=== PATIENT | female | born 1995 | race Caucasian/White ===

== ENCOUNTER → 2022-09-05 11:35 | Outpatient (BNVA) | payer OTHER, SELFPAY | PROVIDERS: Visit Provider Nurse Practitioner Women's Health | DX: Z12.4 Encounter for screening for malignant neoplasm of cervix (principal); Z11.3 Encounter for screening for infections with a predominantly sexual mode of transmission; Z30.9 Encounter for contraceptive management, unspecified | CPT/HCPCS: 81025; 86592; 86803; 87340; 87491; 87591; 87661; 87806; 88175 ==

== ENCOUNTER 2022-10-17 13:53 | Outpatient (CLI) | payer OTHER, SELFPAY ==
--- NOTE | 2022-10-17 14:05 | XR_ITS ---
WS: [id number] XR abdomen min 2V 03364 REASON FOR EXAM: T83.32XA - Displacement of intrauterine contraceptive dev... FINDINGS: No free air or retroperitoneal air. Bowel gas pattern is unremarkable. No mass is identified. No radiopaque intrauterine contraceptive device is identified. XR/XR abdomen min 2V [id number] IMPRESSION: No intrauterine contraceptive device identified. No other abdominal abnormality noted.
== END 2022-10-17 13:54 | disposition home or self-care (01) ==
LOC: RAD 13:56
PROVIDERS: Visit Provider Nurse Practitioner Women's Health
DX: T83.32XA Displacement of intrauterine contraceptive device, initial encounter (principal); X58.XXXA Exposure to other specified factors, initial encounter
CPT/HCPCS: 74019; 81025

== ENCOUNTER → 2022-11-29 10:17 | Outpatient (BNVA) | payer OTHER, SELFPAY | PROVIDERS: PCP Family Medicine; Visit Provider Nurse Practitioner Women's Health | DX: Z30.431 Encounter for routine checking of intrauterine contraceptive device (principal) | CPT/HCPCS: 76830 ==

== ENCOUNTER 2023-02-09 04:51 | Emergency (ER) | payer OTHER, SELFPAY ==
[2023-02-09 04:53] VITALS: BP 168/91; PULSE 97; RESP 22; TEMP 36.8; O2SAT 100; BMI 36.5
--- NOTE | 2023-02-09 05:11 | CTR_ITS ---
PROCEDURE INFORMATION: Exam: CT Abdomen And Pelvis With Contrast Exam date and time: 02/09/2023 5:49 AM Age: 27 years old Clinical indication: Abdominal pain; Localized; Right lower quadrant (rlq); Prior surgery; Surgery date: 6+ months; Surgery type: Iud; Patient HX: C/O rlq pain. History of crohn's TECHNIQUE: Imaging protocol: Computed tomography of the abdomen and pelvis with contrast. Radiation optimization: All CT scans at this facility use at least one of these dose optimization techniques: automated exposure control; mA and/or kV adjustment per patient size (includes targeted exams where dose is matched to clinical indication); or iterative reconstruction. Contrast material: OMNI 350; Contrast volume: 100 ml; Contrast route: INTRAVENOUS (IV); REPORTING DATA: Count of CT and Cardiac NM exams in prior 12 months: This patient has received 0 known CTs and 0 known cardiac nuclear medicine studies in the 12 months prior to the current study. COMPARISON: CR XR abdomen min 2V [id number] 10/17/2022 2:16 PM RADIATION DOSE METRICS: Total DLP (mGy-cm): 1002.73 FINDINGS: Liver: Normal. No mass. Gallbladder and bile ducts: Normal. No calcified stones. No ductal dilation. Pancreas: Normal. No ductal dilation. Spleen: Normal. No splenomegaly. Adrenal glands: Normal. No mass. Kidneys and ureters: Normal. No hydronephrosis. Stomach and bowel: Moderate stool is present within the colon. Nondilated fluid-filled small bowel loops are seen , findings that could suggest mild ileus. Appendix: The appendix is visualized and is normal in configuration. Intraperitoneal space: Unremarkable. No free air. No significant fluid collection. Vasculature: Unremarkable. No abdominal aortic aneurysm. Lymph nodes: A few small mesenteric lymph nodes are seen in the right lower quadrant that are below CT criteria for lymphadenopathy. Mild mesenteric lymphadenitis cannot be entirely excluded. Urinary bladder: Unremarkable as visualized. Reproductive: An IUD is present. Bones/joints: Unremarkable. No acute fracture. Soft tissues: Unremarkable. Other findings: Low-attenuation fluid is seen in the dependent portion of the pelvis likely commensurate with the patient's age and menstrual status. CT/CT abdomen pelvis w con* [id number] IMPRESSION: 1. There are no acute abdominal findings. 2. Nondilated fluid-filled small bowel loops could represent mild ileus. 3. Small mesenteric lymph nodes in the right lower quadrant are below CT criteria for lymphadenopathy. Mild mesenteric lymphadenitis cannot entirely excluded however. 4. Low-attenuation fluid seen in the dependent portion the pelvis likely commensurate with patient's age and menstrual status. 5. Normal appendix 6. No evidence for ureteral obstruction
--- NOTE | 2023-02-09 05:12 | W.ED.ABDPA2 ---
HPI - Abdominal Pain General: Chief Complaint: Abdominal Pain Stated Complaint: abd pain Time Seen by Provider: 02/09/23 05:08 Source: patient History of Present Illness: 27-year-old female with no prior history of belly surgery. She presents with right lower quadrant pain and left lower quadrant pain. Pain started quite suddenly about 45 minutes prior to arrival. No significant nausea or vomiting. She does have a history of Crohn's disease no recent flares including blood in the stool, diarrhea, etc. MD elicited complaint: abdominal pain Pertinent past history: other Onset (ago): minute(s) Pain Consistency: constant Location: RLQ and LLQ Severity: moderate Quality: other Radiation: none Migration to: no migration Exacerbating factors: nothing Associated Symptoms: Denies change in stool character, chills, diarrhea, dysuria, fever(s), hematuria, melena, poor appetite and vomiting Review of Systems Const: Denies: fever(s) or chills Card: Denies: chest pain Resp: Denies: dyspnea GI: Denies: vomiting, diarrhea, change in stool character or melena : Denies: dysuria, hematuria, vaginal bleeding or vaginal discharge [facility] ED PFSH: Medical History Crohn's disease Symptoms not managed with Lialda; has colonoscopy scheduled Hypothyroid No pertinent past medical history neghx: htn,dm,dvt/pe PCP: Dr. Ruano Surgical History H/O vaginal surgery (~2007) Reported as a vaginal repair after her 2008 delivery. Family History Mother Hypertension Father Hypertension Grandmother Thyroid disease Paternal Diabetes Paternal Denies family history of Colon cancer Ovarian cancer Hypercholesteremia Hyperlipidemia Breast cancer Uterine cancer Physical Exam Const: COMMON NORMALS: no acute distress GENERAL APPEARANCE: cooperative; not ill appearing and not frail appearing HENMT: COMMON NORMALS: normocephalic, atraumatic and Normal external nose present HEAD & SCALP: normocephalic and atraumatic FACE & SINUS: normal facial exam and face symmetric NOSE: Normal external nose present Eye: COMMON NORMALS: Equal, round and reactive pupils present and EOMs intact bilaterally PUPIL: Yes Equal, round and reactive pupils present Neck/C-Spine: GENERAL: Yes trachea midline Chest: CHEST: Yes Symmetrical chest wall rise Resp: COMMON NORMALS: normal respiratory effort, No retractions, No use of accessory muscles and clear to auscultation bilaterally AUSCULTATION: clear to auscultation bilaterally Cardio: COMMON NORMALS: regular rate and regular rhythm RATE: regular rate RHYTHM: regular rhythm GI: COMMON NORMALS: Normal to inspection, nondistended, normoactive bowel sounds present PALPATION: Yes Tenderness to palpation present (GI) Details: LLQ and RLQ Extremity: COMMON NORMALS: no pedal edema Neuro: TOYIN COMA SCALE: document GCS findings Liberty coma scale eye opening: Spontaneous Liberty coma scale verbal response: Orientated Liberty coma scale motor response: Obey commands Liberty coma scale total score: 15 SENSORY EXAM: Yes extremities (intact) Psych: COMMON NORMALS: speech normal SPEECH: Yes normal speech Skin: COMMON NORMALS: no rashes or lesions noted GENERAL SKIN EXAM: no rashes or lesions noted Course Vital Signs: Vital signs: Vital Signs Temperature 98.3 F 02/09/23 04:53 Pulse Rate 76 02/09/23 07:27 Respiratory Rate 16 02/09/23 07:27 Blood Pressure 128/69 02/09/23 07:27 Pulse Oximetry 95 02/09/23 07:27 Oxygen Delivery Me thod Room Air 02/09/23 07:27 MDM - Abdominal Pain Medical Decision Making Vital signs are stable. White blood cell count is 10. Hemoglobin 13.5. Liver enzymes are normal. BMP is normal. Lipase is 20. hCG is negative. CT results are pending her CRP is 4. Urinalysis is pending. CT reveals nondilated fluid-filled small bowel loops representing a mild ileus. There is shotty mesenteric lymphadenopathy in the right lower quadrant suggestive of mesenteric adenitis, which is the most likely cause of her right lower quadrant pain. Urinalysis came back with 2+ leukocyte esterase and white, and does not appear significantly contaminated. The patient was discharged prior to urinalysis resulting due to delays in urinalysis antibiotics will be called in for the patient. Lab Data 02/09/23 05:12 02/09/23 05:12 Labs/Radiology: Radiology Impressions Abdomen/Pelvis CT 02/09/23 05:11 IMPRESSION: 1. There are no acute abdominal findings. 2. Nondilated fluid-filled small bowel loops could represent mild ileus. 3. Small mesenteric lymph nodes in the right lower quadrant are below CT criteria for lymphadenopathy. Mild mesenteric lymphadenitis cannot entirely excluded however. 4. Low-attenuation fluid seen in the dependent portion the pelvis likely commensurate with patient's age and menstrual status. 5. Normal appendix 6. No evidence for ureteral obstruction Laboratory Results WBC 10.2 10^3/uL (4.0-10.0) H 02/09/23 05:12 RBC 4.74 10^6/uL (4.1-5.3) 02/09/23 05:12 Hgb 13.5 g/dL (11.5-15.3) 02/09/23 05:12 Hct 42.2 % (37.0-47.0) 02/09/23 05:12 MCV 89.0 fl (81-99) 02/09/23 05:12 MCH 28.5 pg (28.0-34.0) 02/09/23 05:12 MCHC 32.0 g/dL (30.0-36.0) 02/09/23 05:12 RDW 12.3 % (12.1-15.1) 02/09/23 05:12 Plt Count 288 10^3/cmm (130-400) 02/09/23 05:12 MPV 9.8 fL (7.4-10.4) 02/09/23 05:12 Neut % (Auto) 57.2 % 02/09/23 05:12 Lymph % (Auto) 31.8 % 02/09/23 05:12 [place] % (Auto) 7.2 % 02/09/23 05:12 Eos % (Auto) 3.0 % 02/09/23 05:12 Baso % (Auto) 0.5 % 02/09/23 05:12 Neut # (Auto) 5.85 10^3/uL (1.8-7.7) 02/09/23 05:12 Lymph # (Auto) 3.3 10^3/uL (0.8-4.8) 02/09/23 05:12 [place] # (Auto) 0.7 10^3/uL (0.2-0.9) 02/09/23 05:12 Eos # (Auto) 0.3 10^3/uL (0.0-0.8) 02/09/23 05:12 Baso # (Auto) 0.1 10^3/uL (0.0-0.1) 02/09/23 05:12 Nucleated RBC % (auto) 0 % 02/09/23 05:12 Nucleated RBCs # 0.0 /100WBC 02/09/23 05:12 Sodium 137 mmol/L (136-145) 02/09/23 05:12 Potassium 3.9 mmol/L (3.5-5.1) 02/09/23 05:12 Chloride 100 mmol/L (98-107) 02/09/23 05:12 Carbon Dioxide 25 mmol/L (22-29) 02/09/23 05:12 Anion Gap 15.9 (5-19) 02/09/23 05:12 BUN 14 mg/dL (6-20) 02/09/23 05:12 Creatinine 0.7 mg/dL (0.5-0.9) 02/09/23 05:12 GFR Calculation 98.9 mL/min (90-130) 02/09/23 05:12 Glucose 96 mg/dL (65-115) 02/09/23 05:12 Calculated Osmolality 284 mOsm/kg (285-295) L 02/09/23 05:12 Calcium 9.2 mg/dL (8.5-10.5) 02/09/23 05:12 Total Bilirubin 0.3 mg/dL (0.15-1.2) 02/09/23 05:12 AST 21 U/L (0-32) 02/09/23 05:12 ALT 21 U/L (0-33) 02/09/23 05:12 Alkaline Phosphatase 116 U/L (35-105) H 02/09/23 05:12 C-Reactive Protein 3.9 mg/L (0.0-4.9) 02/09/23 05:12 Total Protein 7.4 g/dL (6.6-8.7) 02/09/23 05:12 Albumin 4.6 g/dL (3.5-5.2) 02/09/23 05:12 Globulin 2.8 g/dL (1.3-4.6) 02/09/23 05:12 Lipase 20 U/L (13-60) 02/09/23 05:12 HCG, Qual Negative (Negative) 02/09/23 05:12 Urine Color Straw (Yellow) 02/09/23 06:50 Urine Appearance Clear (CLEAR) 02/09/23 06:50 Urine pH 7 (5-7) 02/09/23 06:50 Ur Specific [place] 1.005 (1.005-1.030) 02/09/23 06:50 Urine Protein Neg (Negative) 02/09/23 06:50 Urine Glucose (UA) Norm (Normal) 02/09/23 06:50 Urine Ketones Negative (Negative) 02/09/23 06:50 Urine Blood Neg (Negative) 02/09/23 06:50 Urine Nitrate Negative (Negative) 02/09/23 06:50 Urine Bilirubin Neg (Negative) 02/09/23 06:50 Urine Urobilinogen Norm mg/dL (Negative) 02/09/23 06:50 Ur Leukocyte Esterase 2+ (Negative) H 02/09/23 06:50 Urine RBC None /hpf (0-2) 02/09/23 06:50 Urine WBC 15-25 /hpf (0-5) H 02/09/23 06:50 Ur Squamous Epith Cells 0-4 /hpf (0-5) H 02/09/23 06:50 Amorphous Sediment Not Reportable 02/09/23 06:50 Urine Bacteria 1+ /hpf (NONE) H 02/09/23 06:50 Discharge Plan Discharge Patient Disposition: Home Clinical Impression: Acute mesenteric lymphadenitis Condition: Stable Prescriptions: New hydrocodone-acetaminophen 5-325 mg tablet 1 tab PO Q8H PRN (Reason: pain) Qty: 10 0RF ondansetron 4 mg film 4 mg PO DAILY PRN (Reason: nausea and vomiting) Qty: 10 0RF No Action Mirena 20 mcg/24 hours (8 yrs) 52 mg intrauterine device 1 device intrauterine ONCE Qty: 1 0RF Mirena 20 mcg/24 hours (8 yrs) 52 mg intrauterine device 1 device intrauterine ONCE sertraline 50 mg tablet 50 mg PO DAILY levothyroxine 112 mcg capsule 112 mcg PO DAILY mesalamine [Lialda] 1.2 gram tablet,delayed release (DR/EC) 3.6 g PO DAILY estradiol 0.01 % (0.1 mg/gram) cream 1 g vaginal .THREE TIME WEEKLY PRN (Reason: vaginal trauma) Qty: 42.5 1RF Rx Instructions: space out doses-- use until fully healed silver sulfadiazine [Silvadene] 1 % cream 1 applic topical BID PRN (Reason: wound healing) Qty: 20 1RF Rx Instructions: apply a 1.5 mm thickness Discharge Orders: Discharge ED (Routine); Ordered 02/09/23 Ordered By: Nando Talavera Referrals: Hema Ruano MD [Primary Care Provider] - 1-3 days Patient Instructions: Mesenteric Adenitis (ED), Opioid Safety, Pain Management Activity Restrictions/Additional Instructions: Return for increasing pain despite treatment, vomiting liquids or medications, fever greater than 100, blood in the stool, other concerning symptoms. Follow-up with your doctor next week. Coding Level of Care Code ED Grades 9 Through 12 Teacher for Sushma Domínguez
[2023-02-09 05:18] VITALS: RESP 19
[2023-02-09] MEDS: ondansetron 2 mg/ML SDV 2 mL 4 MG IVP (05:18)
[2023-02-09] MEDS: HYDROmorphone 1 mg/mL INJ 1 mL IVP (05:18)
[2023-02-09] MEDS: sodium chloride 0.9% 1,000 ML 999 ML IV (05:27)
[2023-02-09 05:31] LABS: Basophils # 0.1 10^3/uL (0.0-0.1); Basophils % 0.5 %; Eosinophils # 0.3 10^3/uL (0.0-0.8); Hematocrit 42.2 % (37.0-47.0); Hemoglobin 13.5 g/dL (11.5-15.3); Lymphocytes # 3.3 10^3/uL (0.8-4.8); Lymphocytes % 31.8 %; Mean Corpuscular Hemoglobin 28.5 pg (28.0-34.0); Mean Platelet Volume 9.8 fL (7.4-10.4); Monocytes # 0.7 10^3/uL (0.2-0.9); Monocytes % 7.2 %; Neutrophils # 5.85 10^3/uL (1.8-7.7); Neutrophils % 57.2 %; Nucleated Red Blood Cells % 0 %; Platelet Count 288 10^3/cmm (130-400); Red Blood Count 4.74 10^6/uL (4.1-5.3); Red Cell Distribution Width 12.3 % (12.1-15.1); White Blood Count 10.2 10^3/uL (4.0-10.0)
[2023-02-09 05:43] LABS: HCG, Serum Qual Negative (Negative)
[2023-02-09 05:46] LABS: Alanine Aminotransferase 21 U/L (0-33); Albumin Level 4.6 g/dL (3.5-5.2); Alkaline Phosphatase 116 U/L (35-105); Anion Gap 15.9 (5-19); Aspartate Amino Transferase 21 U/L (0-32); Blood Urea Nitrogen 14 mg/dL (6-20); C Reactive Protein 3.9 mg/L (0.0-4.9); Calcium 9.2 mg/dL (8.5-10.5); Carbon Dioxide 25 mmol/L (22-29); Chloride 100 mmol/L (98-107); Globulin 2.8 g/dL (1.3-4.6); Glomerular Filtration Rate 98.9 mL/min (90-130); Glucose 96 mg/dL (65-115); Lipase 20 U/L (13-60); Osmolality Calculated 284 mOsm/kg (285-295); Potassium 3.9 mmol/L (3.5-5.1); Sodium 137 mmol/L (136-145); Total Bilirubin 0.3 mg/dL (0.15-1.2); Total Protein 7.4 g/dL (6.6-8.7)
[2023-02-09] MEDS: iohexol 350 mg/mL 500 mL Btl (per mL) IV (05:53)
[2023-02-09 06:30] VITALS: BP 126/93; PULSE 79; RESP 16; O2SAT 100
[2023-02-09 07:27] VITALS: BP 128/69; PULSE 76; RESP 16; O2SAT 95
[2023-02-09 07:30] LABS: Add Urine Microscopic? YES; Bilirubin Urine Neg (Negative); Blood Urine Neg (Negative); Glucose Urine UA Norm (Normal); Ketones Urine Negative (Negative); Leukocyte Esterase Urine 2+ (Negative); Nitrate Urine Negative (Negative); Protein Urine Neg (Negative); Specific Gravity, Urine 1.005 (1.005-1.030); Urine Appearance Clear (CLEAR); Urine Color Straw (Yellow); Urobilinogen Urine Norm (Negative); WBC Urine 15-25 /hpf (0-5); pH Urine 7 (5-7)
[2023-02-09 07:31] LABS: Squamous Epithelial Cell Urine 0-4 /hpf (0-5)
[2023-02-09 07:32] LABS: Add Urine Culture? Yes; Bacteria Urine 1+ /hpf
== END 2023-02-09 07:30 | disposition home or self-care (01) ==
PROVIDERS: Emergency Provider Emergency Medicine; PCP Family Medicine
DX: I88.0 Nonspecific mesenteric lymphadenitis (principal)
CPT/HCPCS: 74177; 80053; 81001; 83690; 84703; 85025; 86140; 87086; 96361; 96374; 96375; 99285; J1170; J2405; J7030; Q9967

== ENCOUNTER → 2023-03-19 08:30 | Outpatient (BNVA) | payer OTHER, SELFPAY | PROVIDERS: PCP Family Medicine; Visit Provider Nurse Practitioner Women's Health | DX: R30.0 Dysuria (principal) | CPT/HCPCS: 81000; 87086; 87491; 87591; 87661 ==

== ENCOUNTER 2023-07-14 01:32 | Emergency (ER) | payer OTHER, SELFPAY ==
[2023-07-14 01:36] VITALS: BP 129/90; PULSE 77; RESP 20; TEMP 36.3; O2SAT 99
--- NOTE | 2023-07-14 01:40 | ED_ITS ---
HPI - General Adult General: Chief complaint: Needlestick/Injury/Exposure Stated complaint: exposuer work comp Time Seen by Provider: 07/14/23 01:37 Source: patient Mode of arrival: ambulatory Limitations: no limitations History of Present Illness: 27-year-old female states that she was over in labor and delivery and a baby had urinated in her eye. States that mom and baby are hep C positive she is here for Workmen's Comp. She denies any pain or eye denies any visual difficulties. PFSH ED PFSH: Medical History Crohn's disease Symptoms not managed with Lialda; has colonoscopy scheduled Hypothyroid No pertinent past medical history neghx: htn,dm,dvt/pe PCP: Dr. Ruano Surgical History H/O vaginal surgery (~2007) Reported as a vaginal repair after her 2007 delivery. Family History Mother Hypertension Father Hypertension Grandmother Thyroid disease Paternal Diabetes Paternal Denies family history of Colon cancer Ovarian cancer Hypercholesteremia Hyperlipidemia Breast cancer Uterine cancer Physical Exam Const: COMMON NORMALS: no acute distress and patient oriented x3 HENMT: COMMON NORMALS: atraumatic HEAD & SCALP: atraumatic Eye: COMMON NORMALS: Equal, round and reactive pupils present and conjunctivae normal CONJUNCTIVA: Yes conjunctivae normal PUPIL: Yes Equal, round and reactive pupils present Chest: COMMONS NORMALS: normal inspection of the chest Resp: COMMON NORMALS: normal respiratory effort Neuro: COMMON NORMALS: patient oriented x3 Psych: COMMON NORMALS: mental status grossly normal Course Vital Signs: Vital signs: Vital Signs Temperature 97.3 F L 07/14/23 01:36 Pulse Rate 77 07/14/23 01:36 Respiratory Rate 20 H 07/14/23 01:36 Blood Pressure 129/90 07/14/23 01:36 Pulse Oximetry 99 07/14/23 01:36 MDM - General Adult Medical Decision Making Patient presents here with exposure to bodily fluid did draw blood patient's follow-up with her work comp patient stable for discharge No radiology studies performed this visit Discharge Plan Discharge Patient Disposition: Home Clinical Impression: Exposure to blood or body fluid Condition: Stable Prescriptions: No Action Mirena 20 mcg/24 hours (8 yrs) 52 mg intrauterine device 1 device intrauterine ONCE Qty: 1 0RF Mirena 20 mcg/24 hours (8 yrs) 52 mg intrauterine device 1 device intrauterine ONCE sertraline 50 mg tablet 50 mg PO DAILY levothyroxine 112 mcg capsule 112 mcg PO DAILY mesalamine [Lialda] 1.2 gram tablet,delayed release (DR/EC) 3.6 g PO DAILY silver sulfadiazine [Silvadene] 1 % cream 1 applic topical BID PRN (Reason: wound healing) Qty: 20 1RF Rx Instructions: apply a 1.5 mm thickness metronidazole 500 mg tablet 500 mg PO BID 7 Days Qty: 14 0RF estradiol 0.01 % (0.1 mg/gram) cream See Rx Instructions .ROUTE .COMPLEX Qty: 42.5 0RF Dose Instruction: USE ONE gram vaginally three times a week NEEDED FOR vaginal trauma.space OUT doses, USE UNTIL fully HEALED Rx Instructions: USE ONE gram vaginally three times a week NEEDED FOR vaginal trauma.space OUT doses, USE UNTIL fully HEALED hydrocodone-acetaminophen 5-325 mg tablet 1 tab PO Q8H PRN (Reason: pain) Qty: 10 0RF ondansetron 4 mg film 4 mg PO DAILY PRN (Reason: nausea and vomiting) Qty: 10 0RF Discharge Orders: Discharge ED (Routine); Ordered 07/14/23 Ordered By: Lisandra Kline Referrals: Hema Ruano MD [Primary Care Provider] - Discharge Diet: Advance as tolerated Discharge Activity: Resume usual activity Patient Instructions: Blood/Body Fluid Exposure - Occupational Coding Level of Care Code ED Manager Telecom for Sushma Domígnuez
[2023-07-14 01:49] VITALS: RESP 14
[2023-07-14 02:35] LABS: HIV 1 & 2 Antibody Non-Reactive (Non-Reactiv); HIV 1 & 2 Antigen Non-Reactive (Non-Reactiv)
[2023-07-14 02:52] LABS: Hepatitis A Antibody IgM Non-Reactive (Nonreactive); Hepatitis B Core AB, Total Non-Reactive (Nonreactive); Hepatitis B Surface AB 8.5 (11.5-1000); Hepatitis B Surface Antigen Non-Reactive (Nonreactive); Hepatitis C Virus Antibody Non-Reactive (Nonreactive)
== END 2023-07-14 01:50 | disposition home or self-care (01) ==
PROVIDERS: Emergency Provider Emergency Medicine; PCP Family Medicine
DX: Z77.21 Contact with and (suspected) exposure to potentially hazardous body fluids (principal); Y99.0 Civilian activity done for income or pay; Y92.230 Patient room in hospital as the place of occurrence of the external cause
CPT/HCPCS: 36415; 86705; 86706; 86709; 86803; 87340; 87806; 99283

== ENCOUNTER 2023-08-29 11:36 | Outpatient (CLI) | payer OTHER, SELFPAY ==
[2023-08-29 13:10] LABS: Hepatitis B Surface Antigen Non-Reactive (Nonreactive); Hepatitis C Virus Antibody Non-Reactive (Nonreactive)
[2023-09-03 13:45] LABS: HIV 1 & 2 Antibody Non-Reactive (Non-Reactiv); HIV 1 & 2 Antigen Non-Reactive (Non-Reactiv)
== END 2023-08-29 11:37 | disposition home or self-care (01) ==
LOC: LAB 11:40
DX: Z01.89 Encounter for other specified special examinations (principal)
CPT/HCPCS: 86803; 87340; 87806

== ENCOUNTER 2023-12-02 02:38 | Outpatient (CLI) | payer OTHER, SELFPAY ==
[2023-12-02 07:30] LABS: Hepatitis B Surface AB 7.8 (11.5-1000); Hepatitis B Surface Antigen Non-Reactive (Nonreactive); Hepatitis C Virus Antibody Non-Reactive (Nonreactive)
[2023-12-02 09:47] LABS: HIV 1 & 2 Antibody Non-Reactive (Non-Reactiv); HIV 1 & 2 Antigen Non-Reactive (Non-Reactiv)
== END 2023-12-02 02:39 | disposition home or self-care (01) ==
PROVIDERS: Visit Provider Family Medicine
DX: Z11.3 Encounter for screening for infections with a predominantly sexual mode of transmission (principal)
CPT/HCPCS: 86706; 86803; 87340; 87806

== ENCOUNTER → 2024-10-30 11:44 | Outpatient (BNVA) | payer OTHER, SELFPAY | PROVIDERS: Visit Provider Registered Nurse | DX: E03.9 Hypothyroidism, unspecified (principal) | CPT/HCPCS: 80048; 82306; 82607; 84443 ==

== ENCOUNTER → 2025-05-13 15:11 | Outpatient (BNVA) | payer OTHER, SELFPAY | PROVIDERS: PCP Registered Nurse; Visit Provider Registered Nurse | DX: R23.3 Spontaneous ecchymoses (principal); E53.8 Deficiency of other specified B group vitamins | CPT/HCPCS: 80053; 82306; 82607; 84439; 84443; 85025 ==

== ENCOUNTER 2025-06-10 16:39 | Outpatient (CLI) | payer OTHER, SELFPAY ==
--- NOTE | 2025-06-10 17:12 | XRR_ITS ---
PROCEDURE INFORMATION: Exam: XR Right Knee Exam date and time: 06/10/2025 5:17 PM Age: 29 years old Clinical indication: Injury or trauma; Blunt trauma; Right; Injury details: X3 weeks fall on knee, pain in anterior knee, painful lump inferior to patella; Additional info: M25.561 - pain in right knee TECHNIQUE: Imaging protocol: Radiologic exam of the right knee. Views: 3 views. COMPARISON: No relevant prior studies available. FINDINGS: Bones/joints: Normal. Soft tissues: Normal. XR/XR knee RT 3V* [id number] IMPRESSION: No acute findings.
== END 2025-06-10 16:40 | disposition home or self-care (01) ==
LOC: RAD 16:41
PROVIDERS: PCP Registered Nurse; Visit Provider Registered Nurse
DX: M25.561 Pain in right knee (principal)
CPT/HCPCS: 73562

== ENCOUNTER 2025-06-14 15:12 | Outpatient (CLI) | payer OTHER, SELFPAY ==
[2025-06-14 16:27] LABS: Alanine Aminotransferase 34 U/L (0-33); Albumin Level 4.7 g/dL (3.5-5.2); Alkaline Phosphatase 101 U/L (35-105); Anion Gap 13.0 (5-19); Aspartate Amino Transferase 22 U/L (0-32); Blood Urea Nitrogen 14 mg/dL (6-20); Calcium 9.2 mg/dL (8.5-10.5); Carbon Dioxide 26 mmol/L (22-29); Chloride 105 mmol/L (98-107); Globulin 2.6 g/dL (1.3-4.6); Glucose 81 mg/dL (65-115); Osmolality Calculated 290 mOsm/kg (285-295); Potassium 4.0 mmol/L (3.5-5.1); Sodium 140 mmol/L (136-145); Total Protein 7.3 g/dL (6.6-8.7)
== END 2025-06-14 15:13 | disposition home or self-care (01) ==
PROVIDERS: PCP Registered Nurse; Visit Provider Registered Nurse
DX: R74.8 Abnormal levels of other serum enzymes (principal)
CPT/HCPCS: 36415; 80053

== ENCOUNTER 2025-08-02 15:28 | Emergency (ER) | payer OTHER, SELFPAY ==
[2025-08-02 15:31] VITALS: BP 125/79; PULSE 79; TEMP 36.3; O2SAT 100
--- OUTSIDE RECORDS SUMMARY | 2025-08-02 15:33 | XMS_ITS | Data Portability ---
Author Organization [facility] Richard, LShwetaLLenore, [facility] Address [address] [place] [address] Assessment No assessment recorded. Plan of Treatment Reminders Order Date Submit Date Provider Last Modified By Organization Details Last Modified Time Details Appointments None record ed. Lab None record ed. Referral None record ed. Procedures None record ed. Surgeries None record ed. Imaging None record ed. Medication Orders None record ed. Patient TargetsNo targets recorded. Patient InstructionsNo instructions recorded. Reason for Referral None Reported. Problems Name Problem SNOMED Code Status Onset Date Resolution Date Notes Provider Name and Address Organization Details Recorded Time Depressive disorder [id number] Active 023 MARICARMEN gann [facility], LShwetaLLenore 13:56:35 Problem Notes None recorded. Medical Equipment None Reported. Medications Name Sig Start Date Stop Date Status Note LastModified by Organization Details LastModified Time fluconazo le 100 mg tablet TAKE ONE TABLET BY MOUTH DAILY 12/31 completed Not Available Not Available Not Available silver sulfadiaz ine 1 % topical cream apply 1.5mm thicknes s TWICE DAILY NEEDED FOR wound healing active Not Available Not Available No t Available tizanidin e 2 mg tablet 12/31 completed Not Available Not Available Not Available minocycli ne 100 mg capsule TAKE ONE CAPSULE BY MOUTH EVERY 12 HOURS 12/31 completed Not Available Not Available Not Available clonazepa m 0.5 mg tablet TAKE 1 TABLET BY MOUTH EVERY DAY NEEDED active Not Available Not Available No t Available sertralin e 100 mg tablet TAKE 1 TABLET BY MOUTH EVERY DAY active Not Available Not Available No t Available sulfameth oxazole 800 mg-trimet hoprim 160 mg tablet TAKE ONE TABLET BY MOUTH EVERY TWELVE HOURS 12/31 completed Not Available Not Available Not Available levothyro xine 100 mcg tablet TAKE ONE TABLET BY MOUTH DAILY 12/31 completed Not Available Not Available Not Available levothyro xine 88 mcg tablet TAKE ONE TABLET BY MOUTH EVERY MORNING 12/31 completed Not Available Not Available Not Available zolpidem 5 mg tablet TAKE ONE TABLET BY MOUTH AT BEDTIME NEEDED active Not Available Not Available No t Available estradiol 0.01% (0.1 mg/gram) vaginal cream USE ONE gram vaginall y three times a week NEEDED FOR vaginal trauma.s pace OUT doses, USE UNTIL fully HEALED active Not Available Not Available No t Available sertralin e 50 mg tablet TAKE 1 TABLET BY MOUTH EVERY DAY 12/31 completed Not Available Not Available Not Available levothyro xine 112 mcg tablet TAKE 1 TABLET BY MOUTH EVERY DAY 2022 active vo JR/tn Not Available Not Available Not Avai lable Sprintec (28) 0.25 mg-0.035 mg tablet TAKE ONE TABLET BY MOUTH DAILY 12/31 completed Not Available Not Available Not Available methylphe nidate LA 30 mg biphasic 50-50 capsule,e xtended release 12/31 completed Not Available Not Available Not Available escitalop anay 5 mg tablet TAKE ONE TABLET BY MOUTH DAILY 12/31 completed Not Available Not Available Not Available Mirena active 09/16/22 ; 0; Recorded 11/29/19 23 11:15AM by Maricarmen Jiang RN, Office Visit; Not Available Not Available Not Available escitalop anay oxalate QD 2022 active Recorded 11/29/19 23 11:15AM by Maricarmen Jiang RN, Office Visit; Refill Quantity : 30; Tablet; Not Available Not Available Not Available mesalamin e 1.2 gram tablet,de layed release TAKE 3 TABLETS BY MOUTH DAILY WITH BREAKFAS T active Not Available Not Available No t Available clindamyc in 1.2 % (1 % base)-kaleigh zoyl peroxide 5 % topical gel APPLY TO AFFECTED AREA DAILY active Not Available Not Available No t Available sodium,po tassium,m ag sulfates 17.5 gram-3.13 gram-1.6 gram oral soln take both bottles DIRECTED 12/31 completed Not Available Not Available Not Available Vitals Date Recorded Body height Body mass index (BMI) Body weight Oxygen saturation Oxygen saturation in Arterial blood by Pulse oximetry Heart rate Respiratory rate Body temperature Systolic And Diastolic Provider Name and Address Organization Details Last Updated DateTime 3 172.09 cm 35 kg/m2 024815. 46 g 98 % 98 % 96 /min 18 /min 98.6 [degF] 122/78 mm[Hg] MARICARMEN JIANG [facility], LLenore 3 13:49:28 Social History None recorded. Functional Status None recorded. Mental Status None recorded. Family History Nothing Reported Notes:Father: Hypertension M aternal Grandfather: Coronary Artery Disease Mother: Hypertension Paternal Grandfather: Malignant Neoplasm Of Liver, Primary, Hypertension Paternal Grandmother: Diabetes, Hypertension, Asthma, Thyroid disease Medical History No medical history recorded. Gynecological HistoryNo gynecological history recorded. Obstetrics History GPAL:G 0 P 0 0 0 0 Past Encounters Encounter ID Performer Location Encounter Start Date Encounter Closed Date Diagnosis/Indication Diagnosis SNOMED-CT Code Diagnosis ICD10 Code Diagnosis IMO Codes Diagnosis Note [id number] Hema Ruano MD [facility] ([facility] [address] [place] [phone] 12/31/2022 13:00:41 01/07/2023 18:59:43 Depressive disorder 79137292 F32.9 Health Concerns Section Related Observation LastModified by Organization Detai ls LastModified Time None Recorded Concern Status LastModified by Organization Details LastModified Time None Recorded Advance Directives Directive None Recorded Payers Insurance Date Sequence Insurance Name Policy Number Policy Castro Covered Member ID Castro Member ID Guarantor Name 04/12/2023 1 [facility] ([facility]) Samara Patricio [id number] Samara Patricio Notes Date Note Type Note Provider Name and Address Organization Details Recorded Time 3 text/html Anxiety/DepressionReported by PatientHPIFor severity, patient reportsinterference with activities of daily livingandinterference with sleepbut reportsdenies suicidal ideations. For associated symptoms, patient reportsanxiety,depression, insomnia,palpitations,head aches, andexcessive worryingbut reportsdenies homicidal ideations. For modifying factors, patient reportscounselling. Hema Roylance, MD [address] [place] [address], [phone], [facility], Nesha 12/31/2022 14:35:58 OBGyn Episode No OBEpisode recorded.
--- OUTSIDE RECORDS SUMMARY | 2025-08-02 15:33 | XMS_ITS | Encounter Summary ---
Author Organization [facility] Address [address] [place] [address] Care Team Providers Care Manager Forensic Name Role Phone Nathalie Rosario DO Primary Care Provider [phone] Encounter Details Date Type Department Care Team (Latest Contact Info) Description 12/01/[address] 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
--- OUTSIDE RECORDS SUMMARY | 2025-08-02 15:33 | XMS_ITS | Encounter Summary ---
Author Organization [facility] Address [address] [place] [address] Care Team Providers Care Paper Cleaner Name Role Phone Nathalie Rosario DO Primary Care Provider +1- [phone] Encounter Details Date Type Department Care Team (Latest Contact Info) Description 03/31/2002 Outpatient Historical [facility] Medicine- [address] [phone] Hayden Crow MD [address] [facility] [address] [place] [phone] GENITAL WARTS NOS (Primary Dx) Social History Tobacco Use Types Packs/Day Years Used Date Smoking Tobacco: Never Assessed Comments Unknown Sex and Gender Information Value Date Recorded Sex Assigned at Not on file 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
--- OUTSIDE RECORDS SUMMARY | 2025-08-02 15:33 | XMS_ITS | Encounter Summary ---
Author Organization [facility] Address [address] [place] [address] Care Team Providers Care Grounds Crew Supervisor Name Role Phone Nathalie Rosario DO Primary Care Provider +1- [phone] Encounter Details Date Type Department Care Team (Latest Contact Info) Description 11/11/1998 Outpatient Historical [facility] Medicine [place] [address] [phone] Hayden Crow MD [address] [phone] Allergy, unspecified not elsewhere classified (Primary Dx) Social History Tobacco Use Types Packs/Day Years Used Date Smoking Tobacco: Never Assessed Comments Unknown Sex and Gender Information Value Date Recorded Sex Assigned at Not on file 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
--- OUTSIDE RECORDS SUMMARY | 2025-08-02 15:33 | XMS_ITS | Encounter Summary ---
Author Organization [facility] Address [address] [place] [address] Care Team Providers Care Clinic Assistant Name Role Phone Nathalie Rosario DO Primary Care Provider Reason for Visit * Reason Comments Med Refill Encounter Details Date Type Department Care Team (Late st Contact Info) Description 08/01/[address] [facility] Family Medicine [place] [address] [place] [address] Nathalie Rosario DO [address] [place] [address] Social History Tobacco Use Types Packs/Day Years Used Date Smoking Tobacco: Never Smokeless Tobacco: Never Alcohol Use Standard Drinks/Week Comments Yes 0 (1 standard drink = 0.6 oz pur e alcohol) Feeling Safe Answer Date Recorded Are you in a relationship wi th someone who hurts you emotionally and/or physically? No 12/24/2023 Comments No Sex and Gender Information Value Date Recorded Sex Assigned at Female 05/03/2023 12:20 PM CDT Legal Sex Female 1:[address]MIN[address]RATIVE ENGINE[address] Gender Identity Female 05/03/2023 12:20 PM CDT Sexual Orientation Not on file documented as of this encounter Miscellaneous Notes * Telephone Encounter - Sharifa Patel LPN - 08/02/2025 1:09 PM CST Medication Refill Request Last Fill Date:07/26/24 #90 with 4 RF NICOLE 11/21/23 Recent and Future Visits: Recent Visits No visits were found meeting these conditions. Showing recent visits within past 540 days with a meds authorizing provider and meeting all other requirements Future Appointments No visits were found meeting these conditions. Showing future appointments within next 365 days with a meds authorizing provider and meeting all other requirements Last Labs: Lab Results Component Value Date/Time CREAT 0.75 08/19/2023 02:31 PM BUN 13 08/19/2023 02:31 PM NA 139 08/19/2023 02:31 PM K 4.1 08/19/2023 02:31 PM CL 107 08/19/2023 02:31 PM CO2 21 08/19/2023 02:31 PM GFR 110 08/19/2023 02:31 PM Samara Patricio - 1995 Check and review of the [place] PDMP performed on 08/02/2025 at 1:[address]MINISTRATIVE ENGINEER documented in this encounter Plan of Treatment Not on file documented as of this encounter Visit Diagnoses Not on filedocumented in this encounter Additional Health Concerns Assessment Noted Time PHQ-9 Depression Total Score: 2 11/21/19 24 9:[address]RATIVE ENGINE[address] documented as of this encounter Care Teams Clinic Assistant Relationship Specialty Start Date End Date Nathalie Rosario DO [address] [place] [address] PCP - General Family Practice 08/15/10 documented as of this encounter
--- OUTSIDE RECORDS SUMMARY | 2025-08-02 15:33 | XMS_ITS | Clinical Summary ---
Author Organization [facility] Address [address] [place] [address] Care Team Providers Care Toolroom Helper Name Role Phone Nathalie Rosario Primary Care Provider Allergies No known active allergies Medications PREVIFEM 0.25-35 mg-mcg tablet TAKE 1 TABLET BY MOUTH DAILY. 28 Tablet 8 0 Active levothyroxine 75 mcg tablet Take 1 Tablet (75 mcg) by mouth daily in the morning. 90 Tablet 4 1 Active mesalamine (Lialda) 1.2 gram Tablet, Delayed Release (E.C.) Take 4 Tablets (4.8 Grams) by mouth daily with breakfast. 240 Tablet 6 1 Active pseudoephedrine (SUDAFED) 30 mg tablet Take 1 Tablet (30 mg) by mouth every 6 hours as needed for Congestion. 20 Tablet 1 Active methylphenidate HCl (RITALIN LA) 20 mg Long Acting capsuleIndications :Attention deficit hyperactivity disorder (ADHD), predominantly inattentive type TAKE ONE CAPSULE BY MOUTH DAILY . MAX DAILY AMOUNT IS ONE CAPSULE 30 Capsule 1 Active Active Problems Problem Noted Date Diagnosed Date Acquired hypothyroidism 12/25/2020 Crohn's colitis 10/15/2013 Acne 04/15/2010 Menstrual periods irregular 04/15/2010 Immunizations Immunization Administration Dates Next Due (ADACEL/BOOSTRIX)(10 YR UP) TDAP VACCINE, 0.5ML, IM 11/03/2008 (GARDASIL)(9-45 YRS) HUMAN PAPILLOMAVIRUS VACCINE, TYPES 6, 11, 16, 18, QUADRIVALENT (4VHPV), 3 DOSE, IM 11/03/2008 (M-M-R II/PRIORIX)(12 MO UP) MEASLES, MUMPS AND RUBELLA VIRUS VACCINE, 0.5 ML IM/SUBCUT 12/21/1998,02/02/1995 Dt Dtp Dtap Vaccine 12/21/1998, 5,07/13/1994,05/03,1993 HIB, Unspecified Formulation 02/02/1995, 07/13/1994,05/03/1994,10/11 Hepatitis B Vaccine 09/25/1995,07/03/1995,1994 INFLUENZA VACCINE QUADRIVALE NT 6 MOS UP PF IM 10/26/2020,06/26/2019,09/08/2018 IPV/OPV 12/21/1998, 4,05/03/1994,10/11 Influenza Seasonal Unspecifi ed Formulation IM 07/20/2015,06/22/2014,08/17/2013 Family History Medical History Relation Name Comments Hypertension Father Asthma Maternal Grandmother Diabetes Maternal Grandmother Colon Cancer Neg Hx Relation Name Status Comments Father Alive Maternal Grandmother Alive Mother Alive Social History Tobacco Use Types Packs/Day Years Used Date Smoking Tobacco: Never Smokeless Tobacco: Never Alcohol Use Standard Drinks/Week Comments No 0 (1 standard drink = 0.6 oz pur e alcohol) Comments No Sex and Gender Information Value Date Recorded Sex Assigned at Not on file 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 Gender Identity Not on file Sexual Orientation Not on file 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 Not on file Not on file Not on file Last Filed Vital Signs Vital Sign Reading Time Taken Comments Blood Pressure 126/80 01/30/2021 9:52 AM CDT Pulse 127 01/30/2021 9:52 AM CDT Temperature 37.1 C (98.8 F) 01/30/2021 9:52 AM CDT Respiratory Rate 13 01/11/2021 8:10 AM CDT Oxygen Saturation 99% 01/30/2021 9:52 AM CDT Inhaled Oxygen Concentration - - Weight 110.2 kg (243 lb) 01/30/2021 9:52 AM CDT Height 172.7 cm (5' 8 ) 01/30/2021 9:52 AM CDT Body Mass Index 36.95 01/30/2021 9:52 AM CDT Plan of Treatment Health Maintenance Due Date Last Done Comments HPV VACCINES (2 - 3-dose series) 12/01/2008 11/03/19 09 DTAP/TDAP/TD VACCINES (7 - T d or Tdap) 11/03/2018 11/03/2008, 12/21/1998, 09/25/1995, Additional history exists HPV/Cotest (21-29) 01/09/2021 01/10/2016 CERVICAL CANCER SCREENING 2023 HPV/Cotest (30-65) 2023 01/10/2016 PAP SMEAR 2023 01/10/2016 INFLUENZA VACCINE (#1) 2025 , 06/26/2019, 09/08/2018, Additional history exists HEPATITIS B VACCINES Completed 09/25/1995, 07/03/1995, 02/02/1995 Procedures Procedure Name Priority Date/Time Associated Diagnosis Comments CERV/VAG CYTOPATH, THIN PREP IMAGR RFLX HPV Routine 01/10/2016 7:10 AM CDT Menstrual periods irregular from Last 3 Months or Most Recently Relevant to Health Maintenance Results * CERV/VAG CYTOPATH, THIN PREP IMAGR RFLX HPV (01/10/2016 7:10 AM CDT) CASE REPORT Gynecologic Cytology Report Case: [id number] Authorizing Provider: Nathalie Rosario DO Collected: 01/10/2016 0710 Ordering Location: [facility] Family Received: 01/12/[address] [facility] First Screen: Heide Garcia Specimen: LB PAP IM W/RFLX HPV PROT, Endocervical 01/16/2016 2:37 PM CDT [facility] Vocational Rehab Consultant Specimen Adequacy Satisfactory for evaluation, endocervical/baxter sformation zone component absent 01/16/2016 2:37 PM CDT [facility] Vocational Rehab Consultant General Categorization Negative For Intraepithelial Lesion Or Malignancy 01/16/2016 2:37 PM CDT [facility] Vocational Rehab Consultant Interpretation Negative For Intraepithelial Lesion Or Malignancy 01/16/2016 2:37 PM CDT [facility] Verified by Heide Garcia on 01/16/2016 at 1437 CDT Comment: Routine follow-up is suggested. Vocational Rehab Consultant Prev Pap Result 01/16/2016 2:37 PM CDT [facility] Comment:initial pap GynLMPcmt 01/16/2016 2:37 PM CDT [facility] Comment:September 2015 Vocational Rehab Consultant Educational Note 01/16/2016 2:37 PM CDT [facility] Comment: Gynecological cytology is a screening procedure subject to both false negative and false positive results. It is most reliable when a satisfactory sample is obtained on a regular repetitive basis. Results must be interpreted in the context of historic and current clinical information. Recommend patient management according to the 2012 ASCCP Consensus Guidelines, ([place]: Cancer J Clin, 62(3); 147-172,2012) EMBEDDED IMAGE 01/16/2016 2:37 PM CDT [facility] Endocervical (Endocervical) 01/10/2016 7:10 AM CDT 01/12/2016 7:10 AM CDT us aNthalie Rosario DO PATHOLOGY/CYTOLOGY ORDERABL ES Final Result [facility] CLIA# [id number] [address] [place] [address] from Last 3 Months or Most Recently Relevant to Health Maintenance Insurance Advance Directives For more information, please contact: [phone] * Full Code (Latest Code Status on File) Date Activated Date Inactivated Comments 01/11/2021 6:45 AM 01/11/2021 10:40 AM * Full Code Date Activated Date Inactivated Comments 10/08/2013 9:51 AM 10/08/2013 1:12 PM Care Teams Toolroom Helper Relationship Specialty Start Date End Date Nathalie Rosario DO [address] [place] [address] PCP - General Family Practice 08/15/10
--- OUTSIDE RECORDS SUMMARY | 2025-08-02 15:33 | XMS_ITS | Encounter Summary ---
Author Organization [facility] Address 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 MECHANIC Gender Identity Female 05/03/2023 12:20 PM CDT Sexual Orientation Not on file documented as of this encounter Plan of Treatment Not on file documented as of this encounter Visit Diagnoses Not on filedocumented in this encounter Additional Health Concerns Assessment Noted Time PHQ-9 Depression Total Score: 2 11/21/19 24 9:35 AM POWER PLANT MECHANIC documented as of this encounter Care Teams Dependency Program Director Relationship Specialty Start Date End Date Nathalie Rosario DO [address] [place] [address] PCP - General Family Practice 08/15/10 documented as of this encounter
--- OUTSIDE RECORDS SUMMARY | 2025-08-02 15:33 | XMS_ITS | Encounter Summary ---
Author Organization [facility] Address [address] [place] [address] Care Team Providers Care Risk Compliance Manager Name Role Phone Nathalie Rosario DO Primary Care Provider +1- [phone] Encounter Details Date Type Department Care Team (Latest Contact Info) Description 08/16/1998 Outpatient Historical [facility] Medicine [place] [address] [phone] Juancarlos West DO NO ADDRESS ON FILE Acute pharyngitis (Primary Dx) Social History Tobacco Use Types Packs/Day Years Used Date Smoking Tobacco: Never Assessed Comments Unknown Sex and Gender Information Value Date Recorded Sex Assigned at Not on file 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
--- OUTSIDE RECORDS SUMMARY | 2025-08-02 15:33 | XMS_ITS | Encounter Summary ---
Author Organization [facility] Address [address] [place] [address] Care Team Providers Care Business Support Manager Name Role Phone Nathalie Rosario DO Primary Care Provider +1- [phone] Encounter Details Date Type Department Care Team (Latest Contact Info) Description 03/29/1999 Outpatient Historical [facility] Medicine [place] [address] [phone] [place] NO ADDRESS ON FILE Rash and other nonspecific skin eruption (Primary Dx) Social History Tobacco Use Types Packs/Day Years Used Date Smoking Tobacco: Never Assessed Comments Unknown Sex and Gender Information Value Date Recorded Sex Assigned at Not on file 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
--- OUTSIDE RECORDS SUMMARY | 2025-08-02 15:33 | XMS_ITS | Clinical Summary ---
Author Organization [facility] Address [address] [place] [address] Care Team Providers Care Cuff Knitter Name Role Phone Nathalie Rosario DO Primary Care Provider Allergies No known active allergies Medications Clindamycin-Rudy zoyl Peroxide (Duac) 1.2 %(1 % base) -5 % GelIndications: Acne vulgaris Apply to affected area daily. 45 Gram 5 021 Active mesalamine (LIALDA) 1.2 gram Tablet, Delayed Release (E.C.)Indicatio ns:Crohn's disease of colon without complication (CMS/HCC) Take 4 Tablets (4.8 Grams) by mouth daily with breakfast. 360 Tablet 022 Active Additional Information Patient taking differently:4.8 Gram Oral DAILY WITH BREAKFAST,Takes 3 tabs daily, Informant: Patient, Reported on 12/16/2023 INTRAUTERINE DEVICE, IUD, INTRAUTERINE by Intrauterine route. Active clonazePAM (KlonoPIN) 1 mg tabletIndicatio ns:Generalized anxiety disorder TAKE 1 TABLET BY MOUTH ONCE A DAY NEEDED FOR ANXIETY 30 Tablet 2 024 Active betamethasone, augmented (DIPROLENE-AF) 0.05 % Ointment Apply to affected area 2 times daily. 50 Gram 3 024 Active sodium, potassium and magnesium sulfates (Suprep Bowel Prep Kit) 17.5-3.13-1.6 gram Recon Soln Take 177 mL by mouth see administration instructions. 354 mL Active simethicone 125 mg Tablet, Chewable Take 1 Tablet (125 mg) by mouth see administration instructions. 3 Tablet 024 Active levothyroxine 112 mcg tablet Take 1 Tablet (112 mcg) by mouth daily. 90 Tablet 2 024 Active semaglutide, weight loss, (WEGOVY) 1.7 mg/0.75 mL Pen Injector Inject 0.75 mL (1.7 mg) by subcutaneous injection every 7 days. 3 mL 024 Active spironolactone (ALDACTONE) 25 mg tablet TAKE 1 TABLET BY MOUTH EVERY DAY NEEDED FOR SWELLING. need TO make appointment FOR more refills 30 Tablet 025 Active vortioxetine (Trintellix) 20 mg tablet Take 1 Tablet (20 mg) by mouth daily. *MUST BE SEEN FOR MORE REFILLS* 30 Tablet 025 Active vortioxetine (Trintellix) 20 mg tablet take 1 tablet by mouth every day 90 Tablet 4 024 2024 Discontinued Active Problems Problem Noted Date Diagnosed Date Severe obesity (BMI 35.0-39.9) with comorbidity 08/25/2023 Moderate episode of recurrent major depressive d isorder 02/06/2023 Generalized anxiety disorder 02/06/2023 Acquired hypothyroidism 12/25/2020 Crohn's disease of large intestine without compl ication 10/15/2013 Acne 04/15/2010 Menstrual periods irregular 04/15/2010 Encounters Date Type Department Care Team Description 08/01/2025 [facility] [address] [place] [address] Nathalie Rosario, 07/27/2025 External Device Data ST[facility] ABSTRACTION Provider, Abstract 06/15/2025 External Device Data [facility] ABSTRACTION Provider, Abstract 06/07/2025 [facility] [address] [place] [address] Nathalie Rosario, 06/01/2025 External Device Data ST[place] ABSTRACTION Provider, Abstract 05/18/2025 External Device Data ST[place] ABSTRACTION Provider, Abstract 05/11/2025 External Device Data ST[facility] ABSTRACTION Provider, Abstract from Last 3 Months Immunizations Immunization Administration Dates Next Due (ADACEL/BOOSTRIX)(10 YR UP) TDAP VACCINE, 0.5ML, IM 11/03/2008 (GARDASIL)(9-45 YRS) HUMAN PAPILLOMAVIRUS VACCINE, TYPES 6, 11, 16, 18, QUADRIVALENT (4VHPV), 3 DOSE, IM 11/03/2008 (M-M-R II/PRIORIX)(12 MO UP) MEASLES, MUMPS AND RUBELLA VIRUS VACCINE, 0.5 ML IM/SUBCUT 12/21/1998,02/02/1995 (PFIZER)(12 YR UP) COVID-19 VACCINE - EMERGENCY USE AUTHORIZATION, MRNA, [id number](PF) 30 MCG/0.3 ML IM SUSP 04/18/2021 Dt Dtp Dtap Vaccine 12/21/1998, 5,07/13/1994,05/03,1993 HIB, Unspecified Formulation 02/02/1995, 07/13/1994,05/03/1994,10/11 Hepatitis B Vaccine 09/25/1995,07/03/1995,1994 INFLUENZA VACCINE QUADRIVALE NT 6 MOS UP PF IM 07/17/2021,10/26/2020,06/26/2019,09/08 IPV/OPV 12/21/1998, 4,05/03/1994,10/11 Influenza Seasonal Unspecifi ed Formulation IM 08/10/2023,07/20/2015,06/22/2014,08/17 Family History Medical History Relation Name Comments Hypertension Father Shai Asthma Maternal Grandmother Jennie Diabetes Maternal Grandmother Jennie Colon Cancer Neg Hx Relation Name Status Comments Father Shai Alive Maternal Grandmother Jennie Alive Mother Alive Social History Tobacco Use [...] PM CDT Legal Sex Female 1:56 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 Gender Identity Female 05/03/2023 12:20 PM CDT Sexual Orientation Not on file Last Filed Vital Signs Vital Sign Reading Time Taken Comments Blood Pressure 107/61 12/24/2023 1:23 PM CDT Pulse 69 12/24/2023 1:23 PM CDT Temperature 37.2 C (98.9 F) 11/21/2023 9:36 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 Respiratory Rate 16 12/24/2023 1:23 PM CDT Oxygen Saturation 99% 12/24/2023 1:23 PM CDT Inhaled Oxygen Concentration - - Weight 113.4 kg (250 lb) 12/16/2023 12:36 PM CDT Height 172.7 cm (5' 8 ) 12/16/2023 12:36 PM CDT Body Mass Index 38.01 12/16/2023 12:36 PM CDT Plan of Treatment Health Maintenance Due Date Last Done Comments HPV VACCINES (2 - 3-dose series) 12/01/2008 11/03/19 09 HPV/Cotest (21-29) 01/09/2021 01/10/2016 CERVICAL CANCER SCREENING 2023 HPV/Cotest (30-65) 2023 01/10/2016 PAP SMEAR 2023 01/10/2016, 01/10/2016 INFLUENZA VACCINE (#1) 2025 , 07/17/2021, 10/26/2020, Additional history exists COVID-19 Vaccine (3 - 2024-2 6 season) 2025 05/09/2021, 04/18/2021 COLORECTAL SCREENING 12/23/2025 12/24/2023, 12/24/2023, 01/11/2021, Additional history exists DTAP/TDAP/TD VACCINES (8 - T d or Tdap) 11/26/2027 11/26/2017, 11/03/2008, 12/21/1998, Additional history exists HEPATITIS B VACCINES Completed 09/25/1995, 09/25/1995, 07/03/1995, Additional history exists Procedures Procedure Name Priority Date/Time Associated Diagnosis Comments COLONOSCOPY REPORT 12/24/2023 1: 02 PM CDT CERV/VAG CYTOPATH, THIN PREP IMAGR RFLX HPV Routine 01/10/2016 7:10 AM CDT from Last 3 Months or Most Recently Relevant to Health Maintenance Results * COLONOSCOPY REPORT (12/24/2023 1:02 PM CDT) Narrative Procedure Note Branden Solorzano MD - 12/24/2023 1:02 PM CDT [facility] GI Patient Name: Samara Patricio Procedure Date: 12/24/2023 Date of : 1995 Admit Type: Outpatient Age: 28 Attending MD: Branden Solorzano MD, Procedure: Colonoscopy Indications: History of Crohn's colitis Providers: Branden Solorzano MD Referring MD: Nathalie Rosario DO Medicines: Monitored Anesthesia Care Complications: No immediate complications. Procedure: After I obtained informed consent, the scope was passed under direct vision. Throughout the procedure, the patient's blood pressure, pulse, and oxygen saturations were monitored continuously. The Colonoscope was introduced through the anus and advanced to the terminal ileum. The entire colon was examined. Estimated Blood Loss: Estimated blood loss: none. Findings: The scope was advanced to the terminal ileum and slowly withdrawn. The terminal ileal mucosa was unremarkable. The visualized colon mucosa throughout was without erythema, erosions, or signs of inflammation. Chromoendoscopy was performed. There was a 4 mm sessile polyp in the rectum that was removed with cold snare polypectomy and retrieved, there were no other dysplastic appearing lesions on chromoendoscopy. There were grade 1 internal hemorrhoids that were not actively bleeding and not thrombosed Impression: Small benign-appearing rectal polyp, removed with cold snare polypectomy Internal hemorrhoids Otherwise unremarkable exam to the ileum, no endoscopic signs of active Crohn's disease. Chromoendoscopy performed and no dysplastic lesions seen Recommendation: Await pathology Continue Lialda Repeat colonoscopy in 2 years - Crossbar Frame Wirer completed using [employer]. Crossbar Frame Wirer variances may occur. Effort has been made to assure the accuracy of auto apprentice mechanic. Any obvious errors or omissions should be clarified with the author. Branden Solorzano MD 12/24/2023 1:02:12 PM Number of Addenda: 0 Note Initiated On: 12/24/2023 12:33 PM Scope Withdrawal Time 0 hours 10 minutes 39 seconds Scope In: 12:45:00 PM Scope Out: 12:58:22 PM [address] [place], [place] Branden Solorzano MD GI PROCEDURE ORDERABLES F inal Result * CERV/VAG CYTOPATH, THIN PREP IMAGR RFLX HPV (01/10/2016 7:10 AM CDT) CASE REPORT Gynecologic Cytology Report Case: [id number] Authorizing Provider: Nathalie Rosario DO Collected: 01/10/2016 0710 Ordering Location: [facility] Received: 01/12/[address] [facility] First Screen: Heide Garcia Specimen: LB PAP IM W/RFLX HPV PROT, Endocervical 01/16/2016 2:37 PM CDT [facility] Agricultural Plow Operator Specimen Adequacy Satisfactory for evaluation, endocervical/baxter sformation zone component absent 01/16/2016 2:37 PM CDT [facility] Agricultural Plow Operator General Categorization Negative For Intraepithelial Lesion Or Malignancy 01/16/2016 2:37 PM CDT [facility] Interpretation Negative For Intraepithelial Lesion Or Malignancy 01/16/2016 2:37 PM CDT [facility] Agricultural Plow Operator Prev Pap Result 01/16/2016 2:37 PM CDT [facility] GynLMPcmt 01/16/2016 2:37 PM CDT [facility] Agricultural Plow Operator Educational Note 01/16/2016 2:37 PM CDT [facility] Endocervical (Endocervical) 01/10/2016 7:10 AM CDT 01/12/2016 7:10 AM CDT us Nathalie Rosario DO PATHOLOGY/CYTOLOGY ORDERABL ES Final Result [facility] CLNV# [id number] [address] [place] [address] [facility] CLIA # [id number] [id number] [place] [address] from Last 3 Months or Most Recently Relevant to Health Maintenance Advance Directives For more information, please contact: [phone] * Full Code (Latest Code Status on File) Date Activated Date Inactivated Comments 12/24/2023 11:24 AM 12/24/2023 3:49 PM Care Teams Cuff Knitter Relationship Specialty Start Date End Date Nathalie Rosario DO [address] [place] [address] PCP - General Family Practice 08/15/10
--- OUTSIDE RECORDS SUMMARY | 2025-08-02 15:33 | XMS_ITS | Encounter Summary ---
Author Organization [facility] Address [address] [place] [address] Care Team Providers Care Maintenance Of Way Superintendent Name Role Phone Nathalie Rosario DO Primary Care Provider [phone] Encounter Details Date Type Department Care Team (Latest Contact Info) Description 04/25/2001 Outpatient Historical [facility] Medicine [place] [address] [phone] [place] DO NO ADDRESS ON FILE Acute upper respiratory infections of unspecified site (Primary Dx) Social History Tobacco Use Types Packs/Day Years Used Date Smoking Tobacco: Never Assessed Comments Unknown Sex and Gender Information Value Date Recorded Sex Assigned at Not on file 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
--- OUTSIDE RECORDS SUMMARY | 2025-08-02 15:33 | XMS_ITS | Encounter Summary ---
Author Organization [facility] Address [address] [place] [address] Care Team Providers Care Video Operator Name Role Phone Nathalie Rosario DO Primary Care Provider [phone]- [phone] Encounter Details Date Type Department Care Team (Latest Contact Info) Description 04/24/[address] 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
--- NOTE | 2025-08-02 15:54 | USR_ITS ---
PROCEDURE INFORMATION: Exam: US Abdomen, Limited; Right Upper Quadrant Exam date and time: 08/02/2025 4:39 PM Age: 29 years old Clinical indication: Abdominal pain; Additional info: Upper abd pain TECHNIQUE: Imaging protocol: Real time ultrasound of the abdomen with image documentation. Limited exam focused on the right upper quadrant. COMPARISON: CT abdomen pelvis w con* [id number] 02/09/2023 5:49 AM FINDINGS: Liver: Normal. No masses. Gallbladder: Multiple gallstones in the gallbladder. No gallbladder wall thickening or pericholecystic fluid. Otherwise, unremarkable. Biliary ducts: Normal. No stones. No dilation. Pancreas: Visualized pancreas is unremarkable. Right kidney: Normal. No mass. No hydronephrosis. Aorta: Unremarkable. Inferior vena cava: Unremarkable. Portal venous: Normal with hepatopetal flow. US/US gall bladder [id number] IMPRESSION: 1. Multiple gallstones in the gallbladder. 2. No acute findings.
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
[2025-08-02 16:10] LABS: Hematocrit 41.5 % (36-47); Hemoglobin 13.90 g/dL (11.27-16.99); Mean Corpuscular HGB Conc 33.5 g/dL (30-55); Mean Corpuscular Hemoglobin 29.1 pg (27-33); Mean Corpuscular Volume 86.8 fl (85-98); Nucleated Red Blood Cells % 0 %; Platelet Count 315 10^3/cmm (157-399); Red Blood Count 4.78 10^6/uL (3.85-5.65); White Blood Count 10.44 10^3/uL (3.29-11.43)
[2025-08-02 16:28] LABS: HCG, Serum Qual Negative (Negative)
[2025-08-02] MEDS: fentaNYL 50 mcg/mL INJ 2mL 100 MCG IVP (16:33)
[2025-08-02] MEDS: ondansetron 2 mg/ML SDV 2 mL 4 MG IVP (16:33)
[2025-08-02 16:55] LABS: Alanine Aminotransferase 104 U/L (0-33); Albumin Level 4.5 g/dL (3.5-5.2); Alkaline Phosphatase 163 U/L (35-105); Anion Gap 17.3 (5-19); Aspartate Amino Transferase 119 U/L (0-32); Blood Urea Nitrogen 12 mg/dL (6-20); Calcium 9.4 mg/dL (8.5-10.5); Carbon Dioxide 21 mmol/L (22-29); Chloride 104 mmol/L (98-107); Creatinine Clr Calc Pharmacy 122.9568; Globulin 2.7 g/dL (1.3-4.6); Glucose 108 mg/dL (65-115); Lipase 29 U/L (13-60); Osmolality Calculated 288 mOsm/kg (285-295); Potassium 3.3 mmol/L (3.5-5.1); Sodium 139 mmol/L (136-145); Total Protein 7.2 g/dL (6.6-8.7)
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
[2025-08-02] MEDS: fentaNYL 50 mcg/mL INJ 2mL IVP (17:29)
[2025-08-02 17:31] VITALS: BP 122/80; PULSE 71; RESP 15; O2SAT 98
[2025-08-02 18:01] VITALS: BP 117/63; PULSE 72; O2SAT 97
== END 2025-08-02 18:03 | disposition home or self-care (01) ==
PROVIDERS: Emergency Provider Physician Assistant; PCP Registered Nurse
DX: K80.50 Calculus of bile duct without cholangitis or cholecystitis without obstruction (principal)
CPT/HCPCS: 36415; 76705; 80053; 83690; 84703; 85025; 96374; 96375; 96376; 99284; J2405; J3010